=== PATIENT | female | born 1980 | race Two or more races ===

== ENCOUNTER 2023-09-02 15:02 | Emergency (ER) | payer MEDICAID, OTHER ==
[~2023-09-02] VITALS: Ht 144.8 cm; Wt 59.0 kg
[2023-09-02 16:11] LABS: Urine Bacteria None Seen /hpf (None Seen)
[2023-09-02 16:23] LABS: Urine Blood Negative /uL (Negative); Urine Clarity Clear (Clear); Urine Color Light-Yellow (Yellow); Urine Protein, UAD TRACE (Negative); Urine Specific Gravity 1.023 (1.001-1.035); Urine Urobilinogen Normal (Negative); Urine WBC <1 /hpf (0 - 5)
[2023-09-02 16:28] LABS: Basophils # (auto) 0 10 ^3/uL (0-0.2); Basophils % (auto) 0.3 % (0.0-2.0); Eosinophils # (auto) 0.1 10 ^3/uL (0-0.8); Hematocrit 39.1 % (36.0-46.0); Hemoglobin 12.9 g/dL (12.2-16.2); Lymphocytes # (auto) 1.9 10 ^3/uL (0.4-5.4); Lymphocytes % (auto) 27.7 % (10.0-50.0); Mean Corpuscular Volume 81.8 fL (80.0-100.0); Monocytes # (auto) 0.7 10 ^3/uL (0-1.3); Neutrophils # (auto) 4.1 10 ^3/uL (1.6-8.6); Red Blood Cells 4.79 10^6/uL (4.0-5.20); Red Cell Distribution Width 15.2 % (11.8-14.3); White Blood Cell 6.8 10^3/uL (4.4-10.8)
[2023-09-02 16:45] LABS: Alanine Aminotransferase 36 U/L (7-40); Albumin 3.9 g/dL (3.2-4.8); Alkaline Phosphatase 80 U/L (46-116); Anion Gap 5 (5-15); Aspartate Aminotransferase 25 U/L (13-40); Bilirubin, Total 0.2 mg/dL (0.2-1.0); Blood Urea Nitrogen 6 mg/dL (9-23); Calcium 9.1 mg/dL (8.7-10.4); Carbon Dioxide 27 mmol/L (20-30); Chloride 105 mmol/L (98-107); Glucose 145 mg/dL (74-106); Lipase 38 U/L (12-53); Potassium 3.6 mmol/L (3.5-5.1); Sodium 137 mmol/L (136-145); Total Protein 6.9 g/dL (5.7-8.2)
[2023-09-02] MEDS: PANTOPRAZOLE 40 MG TAB PO ONE (17:35)
[2023-09-02] MEDS: ONDANSETRON ODT 4 MG TAB PO ONE (17:35)
[2023-09-02 17:46] VITALS: BP 120/78; PULSE 81; RESP 19; TEMP 98; O2SAT 97
== END 2023-09-02 17:50 | disposition home or self-care (01) ==
LOC: ER 15:11
DX: K29.00 Acute gastritis without bleeding (principal); E11.9 Type 2 diabetes mellitus without complications; E78.5 Hyperlipidemia, unspecified; Z32.02 Encounter for pregnancy test, result negative
CPT/HCPCS: 36415; 76705; 80053; 81001; 81025; 83690; 85025; 99284; Q0162

== ENCOUNTER 2024-11-07 04:10 | Inpatient (IN) | payer MEDICAID, OTHER ==
[~2024-11-07] VITALS: Ht 144.8 cm; Wt 62.7 kg
--- NOTE | 2024-11-07 04:39 | ED.PDOC ---
GI ASSESSMENT HPI Comments 44-year-old female who came to ER for abdominal pain. Patient has a history of diabetes. Patient has been having abdominal pain for the past few months. Was already seen by a GI specialist, endoscopy done, diagnosed with gastritis, and prescribed her omeprazole. However for the past few days, worsening of e pigastric abdominal pain, nonradiating, apparently improving after meal, associated with nausea and constipation. Patient denies being . REVIEW OF SYSTEMS: General: No fever, no chills, or fatigue HEENT: No sore throat, no earache, no congestion, no neck pain. Cardiac: No chest pain. No palpitations. Lungs: No shortness of breath, no cough. GI: (+) nausea, no vomiting, no diarrhea, (+) constipation, (+) abdominal pain : No dysuria, frequency, or urgency. No hematuria. Musculoskeletal: No joint pain , no joint swelling, no extremity edema. Skin: No rash, no itching. Neuro: No headache, no dizziness, no weakness EXAM: General: Awake, alert and oriented. No acute distress. Skin: Skin in warm, dry and intact. Appropriate color for ethnicity. HEENT: The head is normocephalic and atraumatic. Conjunctivae are clear without exudates or hemorrhage. Sclera is non-icteric. EOM are intact. No signs of nystagmus. Eyelids are normal in appearance without swelling or lesions. Oral mucosa is pink and moist Neck: The neck is supple with normal range of motion. No JVD. Cardiac: Heart rate and rhythm are normal. No murmurs, gallops, or rubs are auscultated. Respiratory: No signs of respiratory distress. Lung sounds are clear in all lobes bilaterally without rales, rhonchi, or wheezes. Abdominal: Abdomen is soft, + epigastric tenderness without distention. Bowel sounds are present and normoactive in all four quadrants. Extremities: Upper and lower extremities are atraumatic in appearance without deformity or edema. Neurological: The patient is awake, alert and oriented to person, place, and time with normal speech. Speech is clear. There is no facial asymmetry. Psychiatric: Appropriate mood and affect. Good judgement and insight Chief Complaint: Abdominal Pain Time Seen by MD: 04:39 Primary Care Provider: [facility] clinic Reviewed Notes: Nurses Notes Allergies: Coded Allergies: NO KNOWN ALLERGIES (Unverified , 09/02/23) Home Meds Reported Medications Omeprazole (Gnp Omeprazole) 20 Mg Tab, 1 TAB PO DAILY, #30 TAB 3 Refills 11/07/24 Metformin Hydrochloride (Metformin Hcl) 1,000 Mg Tab, 1 TAB PO BID, #60 TAB 5 Refills 11/07/24 Information Source: Patient Mode of Arrival: Ambulatory Past Medical History PAST MEDICAL HISTORY: DM, High Lipids Surgical History: Denies all surgeries CRYPTOLOGIST History: No Pertinent CRYPTOLOGIST History Family History Family History: Reviewed,noncontributory to illness Social History Smoker: Non-Smoker Alcohol: Denies ETOH Use Drugs: Denies Drug Use Lives In: Home Was a procedure done? Was a procedure done?: No GI differential Dx Differential Diagnosis: Diverticular disease, Gastritis/PUD, Gastroenteritis, Pancreatitis, UTI X-Ray, Labs, Meds, VS Vital Signs Date Time Temp Pulse Resp B/P (MAP) Pulse Ox O2 Delivery O2 Flow Rate FiO2 11/07/24 08:13 98.5 82 18 115/82 (93) 95 98.5 11/07/24 07:23 Room Air* 0 21 11/07/24 06:01 83 17 111/76 11/07/24 06:00 83 17 111/76 (88) 96 11/07/24 05:31 89 15 137/82 11/07/24 04:42 Room Air* 0 21 11/07/24 04:42 97.7 89 15 137/82 (100) 98 97.7 11/07/24 04:11 96.5 104 20 134/94 98 96.5 Lab Test 11/07/24 07:03 11/07/24 04:50 11/07/24 04:30 Range/Units Lactic Acid Level 1.5 0.4-2.0 mmol/L Urine Color Colorless Yellow Urine Clarity Clear Clear Urine pH 6.5 5.0-9.0 Urine Specific [place] 1.006 1.001-1.035 Urine Protein Negative Negative Urine Ketones Negative Negative Urine Blood Negative Negative /uL Urine Nitrite Negative Negative Urine Bilirubin Negative Negative Urine Urobilinogen Normal Negative mg/dL Urine Leukocyte Esterase 1+ Negative /uL Urine RBC <1 0 - 4 /hpf Urine Microscopic WBC 2 0-5 /HPF Urine Squamous Epithelial Cells Few <5 /hpf Urine Bacteria Few H None Seen /hpf Urine Glucose Normal Normal mg/dL White Blood Count 15.3 H 4.4-10.8 10^3/uL Red Blood Count 4.88 4.0-5.20 10^6/uL Hemoglobin 10.8 L 12.2-16.2 g/dL Hematocrit 33.8 L 36.0-46.0 % Mean Corpuscular Volume 69.3 L 80.0-100.0 fL Mean Corpuscular Hemoglobin 22.2 L 28.0-32.0 pg Mean Corpuscular Hemoglobin Concent 32.0 32.0-36.0 g/dL Red Cell Distribution Width 17.5 H 11.8-14.3 % Platelet Count 393 140-450 10^3/uL Mean Platelet Volume 7.2 6.9-10.8 fL Neutrophils (%) (Auto) 71.9 37.0-80.0 % Lymphocytes (%) (Auto) 17.2 10.0-50.0 % Monocytes (%) (Auto) 9.3 0.0-12.0 % Eosinophils (%) (Auto) 1.2 0.0-7.0 % Basophils (%) (Auto) 0.4 0.0-2.0 % Neutrophils # (Auto) 11.0 H 1.6-8.6 10 ^3/uL Lymphocytes # (Auto) 2.6 0.4-5.4 10 ^3/uL Monocytes # (Auto) 1.4 H 0-1.3 10 ^3/uL Eosinophils # (Auto) 0.2 0-0.8 10 ^3/uL Basophils # (Auto) 0.1 0-0.2 10 ^3/uL Nucleated Red Blood Cells 0.0 % Sodium Level 137 136-145 mmol/L Potassium Level 3.9 3.5-5.1 mmol/L Chloride Level 105 98-107 mmol/L Carbon Dioxide Level 22 20-31 mmol/L Anion Gap 10 5-15 Blood Urea Nitrogen 6 L 9-23 mg/dL Creatinine 0.74 0.550-1.02 mg/dL Glomerular Filtration Rate Calc 102 >90 mL/min BUN/Creatinine Ratio 8.1 L 10.0-20.0 Serum Glucose 188 H 74-106 mg/dL Hemoglobin A1c 8.8 H <5.7 % A1C Calcium Level 9.4 8.7-10.4 mg/dL Total Bilirubin 0.3 0.2-1.0 mg/dL Aspartate Amino Transferase (AST) 17 13-40 U/L Alanine Aminotransferase (ALT) 25 7-40 U/L Alkaline Phosphatase 78 46-116 U/L Lipase 42 12-53 U/L Hepatitis B Surface Antigen Negative Negative Hepatitis C Antibody Negative Negative Current Medications Medications (Trade) Dose Ordered Sig/Morteza Route Start Time Stop Time Status Last Admin Al Hydrox/Mg Hydrox/Simethicone (Maalox Plus) 30 ml ONCE ONCE PO 11/07/24 04:30 11/07/24 04:31 DC 11/07/24 05:30 Lidocaine HCl (Xylocaine 2% Viscous) 10 ml ONCE ONCE PO 11/07/24 04:30 11/07/24 04:31 DC 11/07/24 05:30 Ondansetron HCl (Zofran) 4 mg ONCE ONCE IV 11/07/24 04:30 11/07/24 04:32 DC 11/07/24 05:30 Morphine Sulfate 2 mg ONCE ONCE IV 11/07/24 04:30 11/07/24 04:32 DC 11/07/24 05:31 Piperacillin Sod/ Tazobactam Sod 100 ml @ 100 mls/hr ONCE ONCE IV 11/07/24 07:45 11/07/24 08:44 DC 11/07/24 08:22 Metronidazole 100 ml @ 100 mls/hr ONCE ONCE IV 11/07/24 07:45 11/07/24 08:44 DC 11/07/24 08:22 Sodium Chloride 1,000 ml @ 1,000 mls/hr Q1H ONCE IV 11/07/24 07:45 11/07/24 08:44 DC 11/07/24 08:23 Sodium Chloride 1,000 ml @ 150 mls/hr Q6H40M ONCE IV 11/07/24 07:45 11/07/24 14:24 DC 11/07/24 08:26 Pantoprazole Sodium (Protonix) 40 mg ONCE ONCE IV 11/07/24 07:45 11/07/24 07:47 DC 11/07/24 08:22 Patient alert. Complaining of abdominal pain. Possible H pylori. Abdomen is soft. She is tender to palpation. Possibly need endoscope for biopsy. Possible sepsis. Establish intravenous access. Was given fluids. Was given Zosyn. Was given Flagyl. CT scan reviewed does not show any acute process. Was given Protonix. Blood sugar elevated. Managed with fluids. Explained to the patient. Continue monitoring. Time of 1ST Reevaluation: 04:35 Reevaluation 1ST: Unchanged Patient Education/Counseling: Need For Follow Up Family Education/Counseling: No Family Present Change of Shift?: Yes (Signed out to Dr. Shaffer @0600 pending lab and imaging results. ) SEPSIS Sepsis Screen Date sepsis recognized/suspect: Nov 07, 2024 Time Sepsis recognized/suspect: 414 Recent Procedure: No On Antibiotic Therapy: No Respiratory Rate >20: No Heart Rate >90: Yes Temp<36 C (96.8 F) or >38.3 C: No SBP <90 or MAP <65 mmHG: No New Acute Mental Status Change: No Is the patient on CPAP, BIPAP,: No Physician Orders Ct Ab Pel Wo Con-No Oral Or Iv (11/07/24 04:29) Blood Culture (11/07/24 07:44) Vital Signs Date Time Temp Pulse Resp B/P (MAP) Pulse Ox O2 Delivery O2 Flow Rate FiO2 11/07/24 08:13 98.5 82 18 115/82 (93) 95 98.5 11/07/24 07:23 Room Air* 0 21 11/07/24 06:01 83 17 111/76 11/07/24 06:00 83 17 111/76 (88) 96 11/07/24 05:31 89 15 137/82 11/07/24 04:42 Room Air* 0 21 11/07/24 04:42 97.7 89 15 137/82 (100) 98 97.7 11/07/24 04:11 96.5 104 20 134/94 98 96.5 Laboratory Tests Test 11/07/24 04:30 11/07/24 07:03 White Blood Count 15.3 10^3/uL (4.4-10.8) H Lactic Acid Level 1.5 mmol/L (0.4-2.0) Departure 1 Departure Time of Disposition: 07:47 Impression: Primary Impression: Sepsis, unspecified organism Qualified Codes: A41.9 - Sepsis, unspecified organism Additional Impressions: Urinary tract infection Qualified Codes: N30.00 - Acute cystitis without hematuria Acute abdominal pain Disposition: ADMITTED INPATIENT Admit to: Med Surg Condition: Guarded Critical Care Note Critical Care Time?: No Stability Stability form required: No I personally scribed for KYLAH LATIF MD ([email or web address]) on 11/07/24 at 04:39. Electronically submitted by Silas Morejon ([facility]). KYLAH LATIF MD Nov 07, 2024 04:39 JEFFERY SHAFFER MD Nov 07, 2024 07:44
[2024-11-07 04:50] LABS: Hematocrit 33.8 % (36.0-46.0); Hemoglobin 10.8 g/dL (12.2-16.2); Mean Corpuscular Hemoglobin 22.2 pg (28.0-32.0); Mean Corpuscular Volume 69.3 fL (80.0-100.0); Nucleated Red Blood Cells % 0.0 %
[2024-11-07 05:08] LABS: Alanine Aminotransferase 25 U/L (7-40); Alkaline Phosphatase 78 U/L (46-116); Anion Gap 10 (5-15); BUN/Creatinine Ratio 8.1 (10.0-20.0); Bilirubin, Total 0.3 mg/dL (0.2-1.0); Calcium 9.4 mg/dL (8.7-10.4); Carbon Dioxide 22 mmol/L (20-31); Chloride 105 mmol/L (98-107); Lipase 42 U/L (12-53); Potassium 3.9 mmol/L (3.5-5.1); Sodium 137 mmol/L (136-145)
[2024-11-07 05:12] LABS: Blood Urea Nitrogen 6 mg/dL (9-23); Glucose 188 mg/dL (74-106)
[2024-11-07] MEDS: MAALOX PLUS or MAALOX 30 ML PO ONE (05:30)
[2024-11-07] MEDS: LIDOCAINE VISCOUS 2% 15ML UD PO ONE (05:30)
[2024-11-07] MEDS: ONDANSETRON HCL 4 MG/2 ML VIAL IV ONE (05:30)
[2024-11-07] MEDS: MORPHINE SULFATE INJ 2 MG/ml SYRG IV ONE (05:31)
--- NOTE | 2024-11-07 06:13 | DVH ---
Exam: CT CT AB PEL WO CON-NO ORAL OR IV History: Epigastric abdominal pain Comparison Study: None Technique: Multidetector spiral CT of the abdomen was performed from lung bases to pubic symphysis. I maging was performed without IV contrast. Axial, coronal and sagittal multiplanar reformats were obta ined from the axial data set by the technologist. Radiation Dose : 1. Abdomen/Pelvis: CTDIvol 8.38 mGy, DLP 495.69 mGy*cm. Findings: Evaluation of solid organs is limited due to lack of intravenous contrast use. Lung Bases: No acute or significant lung base finding. Normal heart size. No pleural or pericardial effusion. Liver: The liver is normal in size. No focal lesions. Gallbladder and Biliary Tree: Unremarkable Spleen: Unremarkable Pancreas: The pancreas is grossly normal in appearance. Adrenal Glands: Unremarkable Kidneys: Kidneys are grossly normal without calculi or hydronephrosis. Bladder: Grossly unremarkable for degree of distention. Bowel: Small sliding-type hiatal hernia. The stomach is grossly normal in appearance. Retained colore ctal stool. Small bowel and colon are otherwise normal in caliber and distribution. The appendix is n ormal. Ascites: Absent Lymphadenopathy: No mesenteric, retroperitoneal or periportal lymphadenopathy. Abdominal Wall and Mesentery: Unremarkable. Vasculature: The visualized abdominal aorta is normal in size and caliber. Evaluation of abdominal a nd pelvic vessels is limited due to lack of intravenous contrast. Pelvic Organs: Uterus is mildly enlarged and lobulated in its morphology, likely leather goods sales representative of le iomyomatous change. Musculoskeletal: No aggressive focal bony lesions, acute fractures or dislocation. IMPRESSION: 1. No acute abdominal or pelvic findings. 2. Small sliding-type hiatal hernia. 3. Retained colorectal stool. 4. Mildly enlarged lobulated uterus, likely leather goods sales representative of leiomyomatous change. Radiation optimization: All CT scans at this facility use at least one of these dose optimization suzie hniques: automated exposure control mA and/or kV adjustment per patient size (includes targeted exam s where dose is matched to clinical indication) or iterative reconstruction.
[2024-11-07 06:25] LABS: Urine Protein, UAD Negative (Negative)
[2024-11-07] MEDS: PIPERACILLIN-TAZOB 3.375GM 100 ML IV ONE (08:22)
[2024-11-07] MEDS: PANTOPRAZOLE 40 MG/10 ML VIAL INJ IV ONE (08:22)
[2024-11-07] MEDS: SODIUM CHLORIDE 0.9% 1,000 ML IV ONE ×2 (08:23→08:26)
[2024-11-07] MEDS ORDERED: DEXTROSE (50%) 50ML SYRG IV PRN (08:30)
[2024-11-07] MEDS ORDERED: ACETAMINOPHEN 325 MG TAB PO PRN (08:30)
[2024-11-07] MEDS ORDERED: HYDROcodone-ACET 5/325MG TAB PO PRN (08:30)
[2024-11-07] MEDS ORDERED: ONDANSETRON HCL 4 MG/2 ML VIAL IV PRN (08:30)
--- NOTE | 2024-11-07 08:35 | DVHHP2 ---
History of Present Illness Reason for Visit: Abdominal pain History of Present Illness Elizabeth Sandhu is a 44-year-old female with past medical history of diabetes, tubal ligation, hyperlipidemia, and gastritis who presents to the ED with abdominal pain. Patient reports that it has been ongoing for several months. She also reports that she was seen by GI specialist had an endoscopy done and was diagnosed with gastritis as well as being placed on omeprazole. Patient reports that she has not been compliant with her medications. She also reports that she eats spicy and a little bit of greasy foods. Patient's daughter Beatrice at the bedside. Patient denies any recent trauma or injury, recent sick contacts, recent ingestion of spoiled food, recent travels, chest pain, shortness of breath, fever, chills, lightheadedness, weakness, dizziness, vomiting, or diarrhea. Cardiovascular: hyperipidemia GI: Gastritis Endocrine: Diabetes Past Surgical History: Tubal Ligation Family History: Hypertension, Other (Mom with hypertension and thyroidectomy. Dad with heart disease. Grandma with thyroidectomy.), Thyroid disfunction Smoke: No ALCOHOL: none Drugs: None Lives: with Family Domestic Violence: Neg Review of Systems Gastrointestinal: Abdominal Pain Allergies: Coded Allergies: NO KNOWN ALLERGIES (Unverified , 09/02/23) Exam Vital Signs Vital Signs Date Time Temp Pulse Resp B/P (MAP) Pulse Ox O2 Delivery O2 Flow Rate FiO2 11/07/24 08:13 98.5 82 18 115/82 (93) 95 98.5 11/07/24 07:23 Room Air* 0 21 General Appearance: Alert, Oriented X3, Cooperative, No acute distress HEENT: Atraumatic, PERRLA, EOMI, Mucous membr. moist/pink Respiratory: Clear to auscultation, Normal air movement Cardiovascular: Regular rate, Normal S1, Normal S2, No murmurs Abdominal: Normal bowel sounds, Soft Extremities: No clubbing, No cyanosis, No edema, Normal pulses Skin: No significant lesion Neuro: Normal speech, Strength at 5/5 X4 ext, Normal tone, Sensation intact Psych/Mental Status: Mental status NL, Mood NL Labs/Xrays Labs Test 11/07/24 07:03 11/07/24 04:50 11/07/24 04:30 Range/Units Urine Color Colorless Yellow Urine Clarity Clear Clear Urine pH 6.5 5.0-9.0 Urine Specific [place] 1.006 1.001-1.035 Urine Protein Negative Negative Urine Ketones Negative Negative Urine Blood Negative Negative /uL Urine Nitrite Negative Negative Urine Bilirubin Negative Negative Urine Urobilinogen Normal Negative mg/dL Urine Leukocyte Esterase 1+ Negative /uL Urine RBC <1 0 - 4 /hpf Urine Microscopic WBC 2 0-5 /HPF Urine Squamous Epithelial Cells Few <5 /hpf Urine Bacteria Few H None Seen /hpf Urine Glucose Normal Normal mg/dL White Blood Count 15.3 H 4.4-10.8 10^3/uL Red Blood Count 4.88 4.0-5.20 10^6/uL Hemoglobin 10.8 L 12.2-16.2 g/dL Hematocrit 33.8 L 36.0-46.0 % Mean Corpuscular Volume 69.3 L 80.0-100.0 fL Mean Corpuscular Hemoglobin 22.2 L 28.0-32.0 pg Mean Corpuscular Hemoglobin Concent 32.0 32.0-36.0 g/dL Red Cell Distribution Width 17.5 H 11.8-14.3 % Platelet Count 393 140-450 10^3/uL Mean Platelet Volume 7.2 6.9-10.8 fL Neutrophils (%) (Auto) 71.9 37.0-80.0 % Lymphocytes (%) (Auto) 17.2 10.0-50.0 % Monocytes (%) (Auto) 9.3 0.0-12.0 % Eosinophils (%) (Auto) 1.2 0.0-7.0 % Basophils (%) (Auto) 0.4 0.0-2.0 % Neutrophils # (Auto) 11.0 H 1.6-8.6 10 ^3/uL Lymphocytes # (Auto) 2.6 0.4-5.4 10 ^3/uL Monocytes # (Auto) 1.4 H 0-1.3 10 ^3/uL Eosinophils # (Auto) 0.2 0-0.8 10 ^3/uL Basophils # (Auto) 0.1 0-0.2 10 ^3/uL Nucleated Red Blood Cells 0.0 % Sodium Level 137 136-145 mmol/L Potassium Level 3.9 3.5-5.1 mmol/L Chloride Level 105 98-107 mmol/L Carbon Dioxide Level 22 20-31 mmol/L Anion Gap 10 5-15 Blood Urea Nitrogen 6 L 9-23 mg/dL Creatinine 0.74 0.550-1.02 mg/dL Glomerular Filtration Rate Calc 102 >90 mL/min BUN/Creatinine Ratio 8.1 L 10.0-20.0 Serum Glucose 188 H 74-106 mg/dL Calcium Level 9.4 8.7-10.4 mg/dL Total Bilirubin 0.3 0.2-1.0 mg/dL Aspartate Amino Transferase (AST) 17 13-40 U/L Alanine Aminotransferase (ALT) 25 7-40 U/L Alkaline Phosphatase 78 46-116 U/L Lipase 42 12-53 U/L Exam: CT CT AB PEL WO CON-NO ORAL OR IV History: Epigastric abdominal pain Comparison Study: None Technique: Multidetector spiral CT of the abdomen was performed from lung bases to pubic symphysis. Imaging was performed without IV contrast. Axial, coronal and sagittal multiplanar reformats were obtained from the axial data set by the technologist. Radiation Dose : 1. Abdomen/Pelvis: CTDIvol 8.38 mGy, DLP 495.69 mGy*cm. Findings: Evaluation of solid organs is limited due to lack of intravenous contrast use. Lung Bases: No acute or significant lung base finding. Normal heart size. No pleural or pericardial effusion. Liver: The liver is normal in size. No focal lesions. Gallbladder and Biliary Tree: Unremarkable Spleen: Unremarkable Pancreas: The pancreas is grossly normal in appearance. Adrenal Glands: Unremarkable Kidneys: Kidneys are grossly normal without calculi or hydronephrosis. Bladder: Grossly unremarkable for degree of distention. Bowel: Small sliding-type hiatal hernia. The stomach is grossly normal in appearance. Retained colorectal stool. Small bowel and colon are otherwise normal in caliber and distribution. The appendix is normal. Ascites: Absent Lymphadenopathy: No mesenteric, retroperitoneal or periportal lymphadenopathy. Abdominal Wall and Mesentery: Unremarkable. Vasculature: The visualized abdominal aorta is normal in size and caliber. Evaluation of abdominal and pelvic vessels is limited due to lack of intravenous contrast. Pelvic Organs: Uterus is mildly enlarged and lobulated in its morphology, likely surgical device sales representative of leiomyomatous change. Musculoskeletal: No aggressive focal bony lesions, acute fractures or dislocation. IMPRESSION: 1. No acute abdominal or pelvic findings. 2. Small sliding-type hiatal hernia. 3. Retained colorectal stool. 4. Mildly enlarged lobulated uterus, likely surgical device sales representative of leiomyomatous change. SEPSIS Sepsis Screen Date sepsis recognized/suspect: Nov 07, 2024 Time Sepsis recognized/suspect: 441 Recent Procedure: No On Antibiotic Therapy: No Respiratory Rate >20: No Heart Rate >90: No Temp<36 C (96.8 F) or >38.3 C: No SBP <90 or MAP <65 mmHG: No New Acute Mental Status Change: No Is the patient on CPAP, BIPAP,: No Physician Orders Ct Ab Pel Wo Con-No Oral Or Iv (11/07/24 04:29) Blood Culture (11/07/24 07:44) Lactic Acid W/ Reflex Order (11/07/24 07:44) Piperacillin-Tazob 3.375gm (Zosyn 3.375g (11/07/24 07:45) Metronidazole 500mg/100ml (Flagyl 500mg/ (11/07/24 07:45) Sodium Chloride 0.9% (11/07/24 07:45) Sodium Chloride 0.9% (11/07/24 07:45) Vital Signs Date Time Temp Pulse Resp B/P (MAP) Pulse Ox O2 Delivery O2 Flow Rate FiO2 11/07/24 08:13 98.5 82 18 115/82 (93) 95 98.5 11/07/24 07:23 Room Air* 0 21 11/07/24 06:01 83 17 111/76 11/07/24 06:00 83 17 111/76 (88) 96 11/07/24 05:31 89 15 137/82 11/07/24 04:42 Room Air* 0 21 11/07/24 04:42 97.7 89 15 137/82 (100) 98 97.7 11/07/24 04:11 96.5 104 20 134/94 98 96.5 Laboratory Tests Test 11/07/24 04:30 11/07/24 07:03 White Blood Count 15.3 10^3/uL (4.4-10.8) H Lactic Acid Level Pending Medications Medications Dose Ordered Sig/Morteza Route Start Time Stop Time Status Last Admin Dose Admin Al Hydrox/Mg Hydrox/Simethicone 30 ml ONCE ONCE PO 11/07/24 04:30 11/07/24 04:31 DC 11/07/24 05:30 30 ML Lidocaine HCl 10 ml ONCE ONCE PO 11/07/24 04:30 11/07/24 04:31 DC 11/07/24 05:30 10 ML Metronidazole 100 ml @ 100 mls/hr ONCE ONCE IV 11/07/24 07:45 11/07/24 08:44 11/07/24 08:22 100 MLS/HR Morphine Sulfate 2 mg ONCE ONCE IV 11/07/24 04:30 11/07/24 04:32 DC 11/07/24 05:31 2 MG Ondansetron HCl 4 mg ONCE ONCE IV 11/07/24 04:30 11/07/24 04:32 DC 11/07/24 05:30 4 MG Pantoprazole Sodium 40 mg ONCE ONCE IV 11/07/24 07:45 11/07/24 07:47 DC 11/07/24 08:22 40 MG Piperacillin Sod/ Tazobactam Sod 100 ml @ 100 mls/hr ONCE ONCE IV 11/07/24 07:45 11/07/24 08:44 11/07/24 08:22 100 MLS/HR Sodium Chloride 1,000 ml @ 150 mls/hr Q6H40M ONCE IV 11/07/24 07:45 11/07/24 14:24 11/07/24 08:26 150 MLS/HR Sodium Chloride 1,000 ml @ 1,000 mls/hr Q1H ONCE IV 11/07/24 07:45 11/07/24 08:44 11/07/24 08:23 1,000 MLS/HR Assessment/Plan Assessment/Plan Assessment Intractable abdominal pain Leukocytosis likely due to UTI Microcytic anemia Diabetes Small sliding-type hiatal hernia. ?Constipation Mildly enlarged lobulated uterus, likely surgical device sales representative of leiomyomatous change History of hyperlipidemia History of gastritis History of tubal ligation Medication noncompliance Plan Admit to med surge NS 2 L given in ED Flagyl plus Zosyn given in ED Lactic Blood cultures LFTs Lipase level T bili level CT abdomen and pelvis noted UA Urine culture Antiemetics Pain management IV antibiotics-ceftriaxone Hemoglobin A1c ISS and Accu-Cheks Bowel regimen Diet Home medications reconciled DVT prophylaxis-not indicated patient ambulating PUD prophylaxis-PPIs Discussed plan of care with patient and nurse Counseled patient on medication adherence 84910 Preventive counseling healthy eating habits, physical activity, and regular checkups Plan discussed with: Patient Date of Service: Nov 07, 2024 Billing Provider: HUGH NGUYEN Common Visit Codes: [id number] INP/OBS CARE (HIGH) Secondary Visit Codes: [id number] COUNSELING IND HUGH NGUYEN Nov 07, 2024 08:35
[2024-11-07] MEDS ORDERED: MORPHINE SULFATE 4 MG/ML SYR/VIAL IV PRN (08:45)
[2024-11-07 10:15] VITALS: BP 122/88; PULSE 83; RESP 17; TEMP 98.1; O2SAT 97
[2024-11-07] MEDS: ACCU-CHEK COMFORT CURVE STRIP VI SCH (11:08)
[2024-11-07] MEDS: InsuLIN REG 1unit/0.01ml Soln (100units/ml) SC SCH (11:11)
[2024-11-07 12:30] VITALS: BP 121/88; PULSE 89; RESP 17; TEMP 98.2; O2SAT 97
[2024-11-07 13:16] LABS: Hepatitis B Surface Antigen Negative (Negative); Hepatitis C Antibody Negative (Negative)
[2024-11-07 17:00] VITALS: BP 117/75; PULSE 91; RESP 17; TEMP 98; O2SAT 98
[2024-11-07] MEDS ORDERED: METF-372 PO (18:11)
[2024-11-07] MEDS ORDERED: OMEP20TA PO (18:11)
[2024-11-07 21:00] VITALS: BP 109/76; PULSE 93; RESP 17; TEMP 98.8; O2SAT 97
[2024-11-08 01:00] VITALS: BP 106/67; PULSE 92; RESP 15; TEMP 97.9; O2SAT 97
[2024-11-08 07:16] LABS: Nucleated Red Blood Cells % 0.0 %
[2024-11-08 07:19] LABS: Hematocrit 30.8 % (36.0-46.0); Hemoglobin 10.0 g/dL (12.2-16.2); Mean Corpuscular Hemoglobin 22.7 pg (28.0-32.0); Mean Corpuscular Volume 70.2 fL (80.0-100.0)
[2024-11-08 07:27] LABS: Alanine Aminotransferase 20 U/L (7-40); Albumin 3.7 g/dL (3.2-4.8); Alkaline Phosphatase 66 U/L (46-116); Anion Gap 9 (5-15); BUN/Creatinine Ratio 12.9 (10.0-20.0); Calcium 8.7 mg/dL (8.7-10.4); Carbon Dioxide 23 mmol/L (20-31); Chloride 105 mmol/L (98-107); Potassium 4.1 mmol/L (3.5-5.1); Sodium 137 mmol/L (136-145); Total Protein 6.6 g/dL (5.7-8.2)
[2024-11-08 07:30] LABS: Bilirubin, Total 0.3 mg/dL (0.2-1.0); Blood Urea Nitrogen 9 mg/dL (9-23); Glucose 146 mg/dL (74-106)
[2024-11-08 08:00] VITALS: RESP 18
[2024-11-08 08:46] VITALS: BP 114/86; PULSE 84; RESP 17; TEMP 98.4; O2SAT 97
[2024-11-08 13:16] VITALS: BP 104/78; PULSE 92; RESP 17; TEMP 98.3; O2SAT 97
--- NOTE | 2024-11-08 13:22 | DVHPN2 ---
Subjective The patient seen and examined at bedside. Still have a little abdominal pain. The patient want to go home AMA. Reviewed: Care Plan, H&P, Labs, Medications, Previous Orders, Radiology Changes from previous H/P or p: No Changes Gastrointestinal: Abdominal Pain Objective Vitals Vital Signs Date Time Temp Pulse Resp B/P (MAP) Pulse Ox O2 Delivery O2 Flow Rate FiO2 11/08/24 13:16 98.3 92 17 104/78 (87) 97 98.3 11/08/24 08:00 Room Air* 0 21 Intake/Output Intake and Output 11/08/24 07:00 Intake Total 2990 ml Balance 2990 ml Intake Oral 1290 ml IV Total 1700 ml # Voids 10 General Appearance: Alert, Oriented X3, Cooperative, No acute distress HEENT: Atraumatic, PERRLA, EOMI, Mucous membr. moist/pink Neck: Supple Lungs: Clear to auscultation, Normal air movement Cardiovascular: Regular rate, Normal S1, Normal S2, No murmurs, Gallops, Rubs Abdomen: Normal bowel sounds, Soft, No tenderness Neuro: Cranial nerves 3-12 NL Psych/Mental Status: Mental status NL Medications Current Medications Medications Dose Ordered Sig/Morteza Route Start Time Stop Time Status Last Admin Dose Admin Ceftriaxone Sodium 50 ml @ 100 mls/hr DAILY@09 IV 11/07/24 09:00 11/08/24 08:26 100 MLS/HR Diagnostic Test (Pha) 1 strip ACHS 11/07/24 11:30 11/08/24 11:18 1 STRIP Insulin Human Regular ACHS SC 11/07/24 11:30 Dextrose 50 ml UD PRN IV 11/07/24 08:30 Acetaminophen/ Hydrocodone Bitart 1 tab Q4HP PRN PO 11/07/24 08:30 Ondansetron HCl 4 mg Q4HP PRN IV 11/07/24 08:30 Acetaminophen 650 mg Q6HP PRN PO 11/07/24 08:30 Morphine Sulfate 2 mg Q4HPRN PRN IV 11/07/24 08:45 Laboratory Results Laboratory Tests 11/08/24 05:53 Chemistry Test 11/08/24 05:53 Albumin 3.7 g/dL (3.2-4.8) Calcium Level 8.7 mg/dL (8.7-10.4) Total Protein 6.6 g/dL (5.7-8.2) LFT Test 11/08/24 05:53 Alanine Aminotransferase (ALT) 20 U/L (7-40) Alkaline Phosphatase 66 U/L (46-116) Aspartate Amino Transferase (AST) 10 U/L (13-40) L Total Bilirubin 0.3 mg/dL (0.2-1.0) Urinalysis Test 11/07/24 04:50 Urine Color Colorless (Yellow) Urine Clarity Clear (Clear) Urine pH 6.5 (5.0-9.0) Urine Specific [place] 1.006 (1.001-1.035) Urine Protein Negative (Negative) Urine Ketones Negative (Negative) Urine Blood Negative /uL (Negative) Urine Nitrite Negative (Negative) Urine Bilirubin Negative (Negative) Urine Urobilinogen Normal mg/dL (Negative) Urine Leukocyte Esterase 1+ /uL (Negative) Urine RBC <1 /hpf (0 - 4) Urine Microscopic WBC 2 /HPF (0-5) Urine Squamous Epithelial Cells Few /hpf (<5) Urine Bacteria Few /hpf (None Seen) H Urine Glucose Normal mg/dL (Normal) Microbiology Microbiology Date/Time Source Procedure Growth Status 11/07/24 08:03 Blood Blood Culture - Preliminary NO GROWTH AFTER 24 HOURS OF INCUBATION. Resulted 11/07/24 04:50 Voided Urine Urine Culture - Preliminary Resulted Labs and/or images reviewed: Labs reviewed by me Assessment/Plan Assessment/Plan Intractable abdominal pain Leukocytosis likely due to UTI Microcytic anemia Diabetes Small sliding-type hiatal hernia. ?Constipation Mildly enlarged lobulated uterus, likely national account representative of leiomyomatous change History of hyperlipidemia History of gastritis History of tubal ligation Medication noncompliance Continue current management. DW patient regarding to her UTI. UC preliminary report show Gram negative bacteria but no identity of the bacteria yet. I advise her to stay until we find out what G. Neg it is. The patient agree to stay Continue IV antibiotic with Rocephin This medical document was created using an electronic medical record system with [employer] direct computerized dictation system. Although this document has been carefully reviewed, there may still be some phonetic and typographical errors. These areas are purely typographical due to imperfections of the software programs, and do not reflect any compromise in the patient's medical care. Plan discussed with: Patient Date of Service: Nov 08, 2024 Billing Provider: RAMSES VALENZUELA MD Common Visit Codes: 12098-XLJOARPYYS INP/OBS CARE(HIGH) RAMSES VALENZUELA MD Nov 08, 2024 13:22
[2024-11-08 16:20] VITALS: BP 108/81; PULSE 85; RESP 17; TEMP 98.4; O2SAT 97
[2024-11-08 21:00] VITALS: BP 111/78; PULSE 61; RESP 15; TEMP 98.3; O2SAT 98
[2024-11-09 01:00] VITALS: BP 116/85; PULSE 94; RESP 15; TEMP 98.5; O2SAT 95
[2024-11-09 09:00] VITALS: BP 101/69; PULSE 90; RESP 18; TEMP 97.2; O2SAT 97
[2024-11-09 12:39] VITALS: BP 107/71; PULSE 90; RESP 18; TEMP 97.6; O2SAT 95
[2024-11-09] MEDS ORDERED: LEVO500T91 PO (14:42)
--- NOTE | 2024-11-09 14:44 | DVHDS2 ---
Discharge Summary Date of Admission Nov 07, 2024 at 08:27 Date of Discharge: Nov 09, 2024 Admitting Diagnosis Intractable abdominal pain Leukocytosis likely due to UTI Microcytic anemia Diabetes Small sliding-type hiatal hernia. ?Constipation Mildly enlarged lobulated uterus, likely cash posting representative of leiomyomatous change History of hyperlipidemia History of gastritis History of tubal ligation Medication noncompliance Labs/Diagnostic Data: Laboratory Results Test 11/09/24 11:09 11/08/24 05:53 11/07/24 07:03 11/07/24 04:50 POC Glucose 184 mg/dl (70-106) White Blood Count 7.5 10^3/uL (4.4-10.8) Red Blood Count 4.38 10^6/uL (4.0-5.20) Hemoglobin 10.0 g/dL (12.2-16.2) Hematocrit 30.8 % (36.0-46.0) Mean Corpuscular Volume 70.2 fL (80.0-100.0) Mean Corpuscular Hemoglobin 22.7 pg (28.0-32.0) Mean Corpuscular Hemoglobin Concent 32.4 g/dL (32.0-36.0) Red Cell Distribution Width 17.8 % (11.8-14.3) Platelet Count 332 10^3/uL (140-450) Mean Platelet Volume 7.3 fL (6.9-10.8) Neutrophils (%) (Auto) 54.2 % (37.0-80.0) Lymphocytes (%) (Auto) 34.1 % (10.0-50.0) Monocytes (%) (Auto) 8.4 % (0.0-12.0) Eosinophils (%) (Auto) 2.9 % (0.0-7.0) Basophils (%) (Auto) 0.4 % (0.0-2.0) Neutrophils # (Auto) 4.1 10 ^3/uL (1.6-8.6) Lymphocytes # (Auto) 2.6 10 ^3/uL (0.4-5.4) Monocytes # (Auto) 0.6 10 ^3/uL (0-1.3) Eosinophils # (Auto) 0.2 10 ^3/uL (0-0.8) Basophils # (Auto) 0 10 ^3/uL (0-0.2) Nucleated Red Blood Cells 0.0 % Sodium Level 137 mmol/L (136-145) Potassium Level 4.1 mmol/L (3.5-5.1) Chloride Level 105 mmol/L (98-107) Carbon Dioxide Level 23 mmol/L (20-31) Anion Gap 9 (5-15) Blood Urea Nitrogen 9 mg/dL (9-23) Creatinine 0.70 mg/dL (0.550-1.02) Glomerular Filtration Rate Calc 109 mL/min (>90) BUN/Creatinine Ratio 12.9 (10.0-20.0) Serum Glucose 146 mg/dL (74-106) Calcium Level 8.7 mg/dL (8.7-10.4) Total Bilirubin 0.3 mg/dL (0.2-1.0) Aspartate Amino Transferase (AST) 10 U/L (13-40) Alanine Aminotransferase (ALT) 20 U/L (7-40) Alkaline Phosphatase 66 U/L (46-116) Total Protein 6.6 g/dL (5.7-8.2) Albumin 3.7 g/dL (3.2-4.8) Lactic Acid Level 1.5 mmol/L (0.4-2.0) Urine Color Colorless (Yellow) Urine Clarity Clear (Clear) Urine pH 6.5 (5.0-9.0) Urine Specific [place] 1.006 (1.001-1.035) Urine Protein Negative (Negative) Urine Ketones Negative (Negative) Urine Blood Negative /uL (Negative) Urine Nitrite Negative (Negative) Urine Bilirubin Negative (Negative) Urine Urobilinogen Normal mg/dL (Negative) Urine Leukocyte Esterase 1+ /uL (Negative) Urine RBC <1 /hpf (0 - 4) Urine Microscopic WBC 2 /HPF (0-5) Urine Squamous Epithelial Cells Few /hpf (<5) Urine Bacteria Few /hpf (None Seen) Urine Glucose Normal mg/dL (Normal) Test 11/07/24 04:30 Hemoglobin A1c 8.8 % A1C (<5.7) Lipase 42 U/L (12-53) Hepatitis B Surface Antigen Negative (Negative) Hepatitis C Antibody Negative (Negative) Other Laboratory Tests 11/08/24 05:53 Brief Hx & Hospital Course: This is a 44 years old female with past medical history of diabetes, tubal ligation, hyperlipidemia, gastritis came to emergency department because of intractable abdominal pain. She said this had been going on for several months. She had seen a GI specialist and had endoscopy done. She was diagnosis was gastritis and was put on omeprazole. Apparently she had not been compliant with her medication. She also loves to eat spicy food and greasy. The patient was admitted. CT scan abdomen pelvis showed: No acute abdominal or pelvic findings. Small sliding-type hiatal hernia. Retained colorectal stool. Mildly enlarged lobulated uterus, likely cash posting representative of leiomyomatous change. The patient found to have urinary tract infection with Klebsiella pneumoniae. The patient was treated with IV antibiotic Rocephin which is sensitive to the bacteria. The patient also was advice to continuing to take omeprazole at home and follow up with GI specialist to further evaluation of her gastritis. Activity as tolerated, diet per home diet. Recommend low-salt low-cholesterol diet and also carb controlled diabetic diet. Also advised the patient to follow up with OBGYN regarding to fibroid and evaluated as outpatient to see if that is the cause for her abdominal pain on top of gastritis. The patient will continuing oral antibiotic with Levaquin for seven more days. Physical exam: HEENT: Normocephalic atraumatic pupils equal react to light and accommodation. Extraocular muscles intact, conjunctiva pink, oropharynx moist, no thrush, no exudate. Lymphatic: No lymphadenopathy Cardiovascular exam: S1, S2 was heard. No murmurs, rubs, gallops Lung: Clear on auscultation bilaterally, no wheeze, rale, rhonchi. GI: Abdominal soft, nondistended, nontenderness, positive bowel sounds. Extremity: No crepitus, cyanosis, edema. Pedal pulses present bilateral. Full range of motion. Skin: Normal turgor, no rash. Psych: Alert, oriented x3. Neurology: No focal deficits, cranial nerve II to XII grossly intact. This medical document was created using an electronic medical record system with [employer] direct computerized dictation system. Although this document has been carefully reviewed, there may still be some phonetic and typographical errors. These areas are purely typographical due to imperfections of the software programs, and do not reflect any compromise in the patient's medical care. Condition at Discharge: Stable Final Diagnosis/Problems List Klebsiela pneumoniae UTI Intractable abdominal pain Leukocytosis likely due to UTI Microcytic anemia Diabetes Small sliding-type hiatal hernia. ?Constipation Mildly enlarged lobulated uterus, likely cash posting representative of leiomyomatous change History of hyperlipidemia History of gastritis History of tubal ligation Medication noncompliance Discharge Disposition: Home Discharge Instruct/Medications Diet: Regular Activity: No Restrictions, As Tolerated Follow Up/Referral: pcp 1-2 weeks Medications: Levaquin 500mg Po qday x 7 days Resume home meds Scheduled Levofloxacin Hemihydrate (Levaquin 500 Mg), 1 TAB PO DAILY Metformin Hydrochloride (Metformin Hcl), 1 TAB PO BID, (Reported) Omeprazole (Gnp Omeprazole), 1 TAB PO DAILY, (Reported) Discharge Statement: "Patient was advised to return to the ER or call 911 if any headaches, dizziness, shortness of breath, chest pain, abdominal pain, bleeding, fevers, or worsening of medical condition. Patient was counseled about treatment plan, medications, possible side effects, patientverbalized understanding. All questions were answered to the best of my ability. This discharge took greater then 30 minutes in planning, reviewing documentation, counseling the patient, and discussing with other team members." ASSESSMENT ASSESSMENT Assessment Klebsiela pneumoniae UTI Date of Service: Nov 09, 2024 Billing Provider: RAMSES VALENZUELA MD Common Visit Codes: 63174-DCF/OBS DISCH DAY >30min RAMSES VALENZUELA MD Nov 09, 2024 14:44
[2024-11-09 16:52] VITALS: BP 119/85; PULSE 100; RESP 16; TEMP 98; O2SAT 98
== END 2024-11-09 17:10 | disposition home or self-care (01) | DRG 463 ==
LOC: EEVIPCON 04:10 → ER 04:10 → OVERFLOW 08:27 → WEST WING 09:34
DX: N30.00 Acute cystitis without hematuria (principal); B96.1 Klebsiella pneumoniae [K. pneumoniae] as the cause of diseases classified elsewhere; D50.9 Iron deficiency anemia, unspecified; E11.9 Type 2 diabetes mellitus without complications; E78.5 Hyperlipidemia, unspecified; K44.9 Diaphragmatic hernia without obstruction or gangrene; K59.00 Constipation, unspecified; N85.2 Hypertrophy of uterus; Z82.49 Family history of ischemic heart disease and other diseases of the circulatory system; Z98.51 Tubal ligation status; Z91.148 Patient's other noncompliance with medication regimen for other reason; Z79.84 Long term (current) use of oral hypoglycemic drugs
CPT/HCPCS: 36415; 74176; 80048; 80053; 81001; 82247; 82962; 83036; 83605; 83690; 84075; 84450; 84460; 85025; 86803; 87040; 87086; 87088; 87186; 87340; 96365; 96375; G0378; J1815; J2405; J2470; J2543; J3490

== ENCOUNTER 2025-01-13 11:31 | Outpatient (CLI) | payer MEDICAID ==
[~2025-01-13 11:31] MED LIST: LEVO500T91 PO; METF-372 PO; OMEP20TA PO
[2025-01-13 12:00] LABS: Hematocrit 35.4 % (36.0-46.0); Hemoglobin 11.1 g/dL (12.2-16.2); Mean Corpuscular Hemoglobin 22.2 pg (28.0-32.0); Mean Corpuscular Volume 70.4 fL (80.0-100.0); Nucleated Red Blood Cells % 0.1 %
[2025-01-13 12:38] LABS: Total Iron Binding Capacity 376.0 ug/dL (250-425)
[2025-01-13 12:40] LABS: Alanine Aminotransferase 21 U/L (7-40); Albumin 4.5 g/dL (3.2-4.8); Alkaline Phosphatase 83 U/L (46-116); Anion Gap 10 (5-15); BUN/Creatinine Ratio 13.9 (10.0-20.0); Bilirubin, Total 0.4 mg/dL (0.2-1.0); Blood Urea Nitrogen 10 mg/dL (9-23); Calcium 9.8 mg/dL (8.7-10.4); Carbon Dioxide 27 mmol/L (20-31); Chloride 104 mmol/L (98-107); Cholesterol 191 mg/dL (< 200); Potassium 4.3 mmol/L (3.5-5.1); Sodium 141 mmol/L (136-145); Total Protein 8.0 g/dL (5.7-8.2)
[2025-01-13 12:44] LABS: Iron 26.0 ug/dL (50-170)
[2025-01-13 12:46] LABS: Glucose 143 mg/dL (74-106); HDL Cholesterol 38 mg/dL (40-59); Triglycerides 170 mg/dL (< 150)
[2025-01-13 13:10] LABS: Lipase 38 U/L (12-53)
== END 2025-01-13 17:00 | disposition home or self-care (01) ==
LOC: LAB 11:31
PROVIDERS: ATTEND Internal Medicine
DX: D64.9 Anemia, unspecified (principal); R10.9 Unspecified abdominal pain; Z00.01 Encounter for general adult medical examination with abnormal findings
CPT/HCPCS: 36415; 80053; 80061; 82728; 83036; 83540; 83550; 83690; 84443; 85025